=== PATIENT | female | born 1980 | race African-American/Black ===

== ENCOUNTER 2018-11-12 04:39 | Emergency (ER) | payer SELFPAY ==
[~2018-11-12] VITALS: Ht 167.6 cm; Wt 80.0 kg
[2018-11-12 06:41] LABS: BASOPHILS % 0.4 % (0.0-2.0); EOSINOPHILS % 0.2 % (0.0-5.0); HEMATOCRIT. 37.4 % (36.0-48.0); LYMPHOCYTES % 26.1 % (20.0-50.0); MEAN CORPUSCULAR HEMOGLOBIN 28.7 pg (28.0-32.0); MEAN CORPUSCULAR VOLUME 89.6 fL (81.0-99.0); MEAN PLATELET VOLUME 7.3 fl (7.4-10.4); MONOCYTES % 8.5 % (2.0-8.0); NEUTROPHILS % 64.8 % (40.0-76.0); PLATELET 285 x1000/uL (130-400); RED BLOOD CELL COUNT 4.17 mill/uL (4.2-5.4); RED CELL DISTRIBUTION WIDTH 15.1 % (11.6-14.6)
[2018-11-12 06:48] LABS: CHLORIDE 107 mEq/L (98-107)
[2018-11-12 07:58] LABS: CLARITY URINE CLOUDY (CLEAR); COLOR URINE YELLOW (YELLOW); KETONES URINE NEGATIVE (NEGATIVE); LEUKOCYTE ESTERASE URINE NEGATIVE (NEGATIVE); NITRITE URINE NEGATIVE (NEGATIVE); OCCULT BLOOD URINE NEGATIVE (NEGATIVE); PH URINE 5.5 (4.5-8.0); PROTEIN URINE NEGATIVE (NEGATIVE); SPECIFIC GRAVITY URINE 1.015 (1.005-1.030); UROBILINOGEN URINE 0.2 E.U./dL (0.2-1.0)
[2018-11-12 09:26] VITALS: BP 115/64
== END 2018-11-12 09:31 | disposition home or self-care (01) ==
LOC: ER 04:39
DX: R55 Syncope and collapse (principal); R56.9 Unspecified convulsions; Z88.6 Allergy status to analgesic agent; R61 Generalized hyperhidrosis
CPT/HCPCS: 36415; 71045; 81025; 83605; 93005; 99284